=== PATIENT | male | born 1955 | race Caucasian/White ===

== ENCOUNTER 2019-09-24 15:19 | Observation (INO) | payer MEDICARE ==
[~2019-09-24] VITALS: Ht 196 cm; Wt 116.0 kg
[~2019-09-24 15:19] MED LIST: ASPIRIN81 M1 PO; CYCLOBENZAPRINE5 M3 PO; HUMALOG100 UNIT/2 SQ; LASIX40 MG PO; LIPITOR20 MG PO; LOPRESSOR25 MG PO; PLAVIX75 M1 PO; TRESIBA FL100 UNIT/1 SQ
[2019-09-24 15:39] VITALS: BP 146/99
[2019-09-24 16:11] LABS: BASO % 0.7 % (0.0-1.0); EOS # 0.1 10*3/uL (0.0-0.4); EOS % 2.2 % (1.0-4.0); HEMATOCRIT 39.6 % (42.0-52.0); LYMPH # 1.1 10*3/uL (1.3-4.4); LYMPH % 19.7 % (27.0-41.0); MEAN CELL VOLUME 87.6 fl (80.0-94.0); MEAN CORPUSCULAR HGB 26.1 pg (27.0-31.0); MEAN CORPUSCULAR HGB CONC 29.8 g/dl (33.0-37.0); MEAN PLATELET VOLUME 9.9 fl (9.6-12.3); MONO # 0.5 10*3/uL (0.1-1.0); MONO % 8.3 % (3.0-9.0); NEUT # 3.7 10*3/uL (2.3-7.9); NEUT % 68.7 % (47.0-73.0); PLATELET COUNT AUTOMATED 183 10*3/uL (130-400); RED BLOOD COUNT 4.52 10*6/uL (4.50-5.90); RED CELL DISTRI WIDTH 18.4 % (0-14.5); WHITE BLOOD COUNT 5.4 10*3/uL (4.8-10.8)
[2019-09-24 16:28] LABS: ALKALINE PHOSPHATASE 103 U/L (45-117); BUN 18 mg/dl (7-24); CHLORIDE 109 mmol/L (98-107); CREATININE 1.23 mg/dL (0.70-1.30); POTASSIUM 4.3 mmol/L (3.5-5.1); SGOT/AST 19 IU/L (3-35); SGPT/ALT 18 U/L (12-78); SODIUM 139 mmol/L (136-145); TOTAL PROTEIN 6.8 gm/dL (6.4-8.2)
[2019-09-24 16:31] VITALS: BP 142/87
[2019-09-24 16:35] LABS: ACT PARTIAL THROMBO TIME 24.9 SECONDS (20.0-32.1); INTERNATIONAL NORM RATIO 1.2 (2.0-3.5)
[2019-09-24 16:46] LABS: TROPONIN I 0.066 ng/ml (<0.045)
[2019-09-24 17:16] VITALS: BP 166/94
[2019-09-24 20:00] VITALS: BP 160/88
[2019-09-25 08:00] VITALS: BP 139/98
== END 2019-09-25 11:06 | disposition home or self-care (01) ==
LOC: ED 15:19 → EDHOLD 18:43 → 5E 18:43
PROVIDERS: Emergency Medicine; ADMIT Internal Medicine
DX: R68.89 Other general symptoms and signs (principal); R55 Syncope and collapse; R06.00 Dyspnea, unspecified; E11.9 Type 2 diabetes mellitus without complications; I25.10 Atherosclerotic heart disease of native coronary artery without angina pectoris; R79.89 Other specified abnormal findings of blood chemistry; E87.8 Other disorders of electrolyte and fluid balance, not elsewhere classified; E87.2 Acidosis; E44.0 Moderate protein-calorie malnutrition; E66.9 Obesity, unspecified; Z68.30 Body mass index [BMI] 30.0-30.9, adult; D64.9 Anemia, unspecified

== ENCOUNTER → 2021-01-21 | Outpatient (CLI) | payer MEDICARE | END | disposition home or self-care (01) | LOC: RESCLI 00:41 | PROVIDERS: ATTEND Internal Medicine | DX: E11.9 Type 2 diabetes mellitus without complications (principal); E78.5 Hyperlipidemia, unspecified; G62.2 Polyneuropathy due to other toxic agents; G62.9 Polyneuropathy, unspecified; I10 Essential (primary) hypertension; Z95.5 Presence of coronary angioplasty implant and graft; Z79.899 Other long term (current) drug therapy; Z95.0 Presence of cardiac pacemaker; Z95.828 Presence of other vascular implants and grafts; Z79.84 Long term (current) use of oral hypoglycemic drugs ==

== ENCOUNTER 2021-03-01 09:00 | Inpatient (IN) | payer MEDICARE ==
[~2021-03-01] VITALS: Ht 195.5 cm; Wt 115.0 kg
[2021-03-01] VITALS (7 sets, daily range): BP systolic 105–137; BP diastolic 61–82
[2021-03-01 10:00] LABS: BASO % 0.2 % (0.0-1.0); HEMATOCRIT 39.8 % (42.0-52.0); LYMPH # 0.7 10*3/uL (1.3-4.4); LYMPH % 11.4 % (27.0-41.0); MEAN CELL VOLUME 86.7 fl (80.0-94.0); MEAN CORPUSCULAR HGB 29.4 pg (27.0-31.0); MEAN CORPUSCULAR HGB CONC 33.9 g/dl (33.0-37.0); MEAN PLATELET VOLUME 11.2 fl (9.6-12.3); MONO # 0.5 10*3/uL (0.1-1.0); MONO % 7.7 % (3.0-9.0); NEUT # 4.6 10*3/uL (2.3-7.9); NEUT % 79.5 % (47.0-73.0); PLATELET COUNT AUTOMATED 130 10*3/uL (130-400); RED BLOOD COUNT 4.59 10*6/uL (4.50-5.90); RED CELL DISTRI WIDTH 13.2 % (0-14.5); WHITE BLOOD COUNT 5.8 10*3/uL (4.8-10.8)
[2021-03-01 10:16] LABS: ALBUMIN 2.6 gm/dl (3.1-4.5); CREATININE 1.88 mg/dL (0.70-1.30); POTASSIUM 4.7 mmol/L (3.5-5.1); TOTAL PROTEIN 6.6 gm/dL (6.4-8.2)
[2021-03-01 10:18] LABS: TROPONIN I 0.055 ng/ml (<0.045)
[2021-03-01 17:25] LABS: CREATININE 1.96 mg/dL (0.70-1.30); POTASSIUM 4.9 mmol/L (3.5-5.1)
[2021-03-02 02:16] VITALS: BP 120/80
[2021-03-02 03:56] LABS: ARTERIAL BLOOD GAS PH 7.412 (7.35-7.45)
[2021-03-02 03:58] LABS: ABG BASE EXCESS -3.7 mmol/L (-2.0-2.0)
[2021-03-02 06:32] LABS: MEAN CELL VOLUME 89.7 fl (80.0-94.0); MEAN CORPUSCULAR HGB 29.3 pg (27.0-31.0); MEAN CORPUSCULAR HGB CONC 32.7 g/dl (33.0-37.0); MEAN PLATELET VOLUME 11.2 fl (9.6-12.3); PLATELET COUNT AUTOMATED 157 10*3/uL (130-400); RED BLOOD COUNT 4.57 10*6/uL (4.50-5.90); RED CELL DISTRI WIDTH 13.5 % (0-14.5); WHITE BLOOD COUNT 5.2 10*3/uL (4.8-10.8)
[2021-03-02 06:37] LABS: ALBUMIN 2.7 gm/dl (3.1-4.5); CREATININE 1.87 mg/dL (0.70-1.30); POTASSIUM 4.6 mmol/L (3.5-5.1); TOTAL PROTEIN 6.2 gm/dL (6.4-8.2)
[2021-03-02 08:00] VITALS: BP 144/87
[2021-03-02 08:05] LABS: ATYPICAL LYMPHS 1 % (0-0); BURR CELLS FEW; PLATELET SUFFICIENCY NORMAL (NORMAL); TOTAL CELLS COUNTED 100 #CELLS
[2021-03-02 08:54] LABS: BILIRUBIN Negative (Negative); BLOOD Trace-Lysed (Negative); CLARITY Clear (Clear); COLOR Dark Yellow (Yellow); GLUCOSE 3+ (Negative); KETONE Negative (Negative); LEUKO ESTERASE Negative (Negative); NITRITE Negative (Negative); SPECIFIC GRAVITY >= 1.030 (1.001-1.030)
[2021-03-02 09:09] LABS: BACTERIA 1+; RBC 0-2 rbc/hpf (0-2)
[2021-03-02 09:19] LABS: VITAMIN D, 25-HYDROXY 28.2 ng/mL (30-100)
[2021-03-02 12:00] VITALS: BP 145/95
[2021-03-02 15:51] VITALS: BP 141/90
[2021-03-02] MEDS ORDERED: NEURONTIN300 MG PO (19:11)
[2021-03-02] MEDS ORDERED: CYMBALTA30 MG PO (19:11)
[2021-03-02] MEDS ORDERED: COREG25 MG PO (19:12)
[2021-03-02] MEDS ORDERED: LOSARTAN POTASS25 M1 PO (19:12)
[2021-03-02 20:00] VITALS: BP 122/75
[2021-03-03] VITALS: BP 144/85
[2021-03-03 07:00] LABS: CREATININE 1.84 mg/dL (0.70-1.30); POTASSIUM 5.2 mmol/L (3.5-5.1)
[2021-03-03 08:00] VITALS: BP 142/68
[2021-03-03 12:00] VITALS: BP 124/85
[2021-03-03 16:00] VITALS: BP 144/79
[2021-03-03 20:00] VITALS: BP 111/72
[2021-03-04] VITALS: BP 115/79
[2021-03-04 06:28] LABS: CREATININE 1.78 mg/dL (0.70-1.30); POTASSIUM 4.9 mmol/L (3.5-5.1)
[2021-03-04 08:00] VITALS: BP 112/67
[2021-03-04 20:00] VITALS: BP 117/71
[2021-03-04 23:20] VITALS: BP 124/84
[2021-03-05 06:25] LABS: BASO % 0.1 % (0.0-1.0); HEMATOCRIT 38.8 % (42.0-52.0); LYMPH # 0.5 10*3/uL (1.3-4.4); LYMPH % 4.9 % (27.0-41.0); MEAN CELL VOLUME 88.8 fl (80.0-94.0); MEAN CORPUSCULAR HGB 29.5 pg (27.0-31.0); MEAN CORPUSCULAR HGB CONC 33.2 g/dl (33.0-37.0); MEAN PLATELET VOLUME 10.9 fl (9.6-12.3); MONO # 0.7 10*3/uL (0.1-1.0); MONO % 7.1 % (3.0-9.0); NEUT # 8.1 10*3/uL (2.3-7.9); PLATELET COUNT AUTOMATED 216 10*3/uL (130-400); RED BLOOD COUNT 4.37 10*6/uL (4.50-5.90); RED CELL DISTRI WIDTH 13.2 % (0-14.5); WHITE BLOOD COUNT 9.3 10*3/uL (4.8-10.8)
[2021-03-05 06:42] LABS: POTASSIUM 4.9 mmol/L (3.5-5.1)
[2021-03-05 06:54] LABS: ALBUMIN 2.3 gm/dl (3.1-4.5); CREATININE 1.72 mg/dL (0.70-1.30); TOTAL PROTEIN 5.5 gm/dL (6.4-8.2)
[2021-03-05 08:00] VITALS: BP 147/92
[2021-03-05 12:00] VITALS: BP 131/92
[2021-03-05 16:00] VITALS: BP 135/84
[2021-03-05 20:00] VITALS: BP 120/95
[2021-03-06] VITALS: BP 121/72
[2021-03-06 07:16] LABS: BASO % 0.1 % (0.0-1.0); HEMATOCRIT 36.5 % (42.0-52.0); LYMPH # 0.4 10*3/uL (1.3-4.4); LYMPH % 3.5 % (27.0-41.0); MEAN CORPUSCULAR HGB 29.6 pg (27.0-31.0); MEAN CORPUSCULAR HGB CONC 33.7 g/dl (33.0-37.0); MEAN PLATELET VOLUME 10.9 fl (9.6-12.3); MONO # 0.6 10*3/uL (0.1-1.0); MONO % 5.7 % (3.0-9.0); NEUT # 9.2 10*3/uL (2.3-7.9); NEUT % 89.3 % (47.0-73.0); PLATELET COUNT AUTOMATED 215 10*3/uL (130-400); RED BLOOD COUNT 4.15 10*6/uL (4.50-5.90); RED CELL DISTRI WIDTH 13.3 % (0-14.5); WHITE BLOOD COUNT 10.3 10*3/uL (4.8-10.8)
[2021-03-06 07:32] LABS: ALBUMIN 2.2 gm/dl (3.1-4.5); CREATININE 1.69 mg/dL (0.70-1.30); TOTAL PROTEIN 5.3 gm/dL (6.4-8.2)
[2021-03-06 08:00] VITALS: BP 149/81
[2021-03-06 08:42] LABS: ABG BASE EXCESS -3.5 mmol/L (-2.0-2.0); ARTERIAL BLOOD GAS PH 7.431 (7.35-7.45); ARTERIAL BLOOD GAS PO2 47.3 (80-90)
[2021-03-06 11:50] VITALS: BP 143/80
[2021-03-06 16:01] VITALS: BP 150/84
[2021-03-06 20:00] VITALS: BP 132/80; BP 93/69
[2021-03-07] VITALS: BP 123/67
[2021-03-07 06:57] LABS: HEMATOCRIT 36.6 % (42.0-52.0); MEAN CELL VOLUME 87.6 fl (80.0-94.0); MEAN CORPUSCULAR HGB 29.2 pg (27.0-31.0); MEAN CORPUSCULAR HGB CONC 33.3 g/dl (33.0-37.0); MEAN PLATELET VOLUME 10.9 fl (9.6-12.3); PLATELET COUNT AUTOMATED 219 10*3/uL (130-400); RED BLOOD COUNT 4.18 10*6/uL (4.50-5.90); RED CELL DISTRI WIDTH 13.2 % (0-14.5); WHITE BLOOD COUNT 9.7 10*3/uL (4.8-10.8)
[2021-03-07 07:20] LABS: ALBUMIN 2.4 gm/dl (3.1-4.5); CREATININE 1.47 mg/dL (0.70-1.30); POTASSIUM 5.3 mmol/L (3.5-5.1); TOTAL PROTEIN 5.7 gm/dL (6.4-8.2)
[2021-03-07 08:00] VITALS: BP 152/82
[2021-03-07 08:47] LABS: PLATELET SUFFICIENCY NORMAL (NORMAL); TOTAL CELLS COUNTED 100 #CELLS
[2021-03-07 12:00] VITALS: BP 152/92
[2021-03-07 16:00] VITALS: BP 147/84
[2021-03-07 20:00] VITALS: BP 112/75
[2021-03-08] VITALS: BP 111/74
[2021-03-08 07:21] LABS: CREATININE 1.47 mg/dL (0.70-1.30); POTASSIUM 5.1 mmol/L (3.5-5.1)
[2021-03-08 08:00] VITALS: BP 132/79
[2021-03-08 13:00] VITALS: BP 110/68
[2021-03-08 16:00] VITALS: BP 132/78
[2021-03-08 20:00] VITALS: BP 142/86
[2021-03-09] VITALS: BP 113/78
[2021-03-09 06:45] LABS: ALBUMIN 2.3 gm/dl (3.1-4.5); CREATININE 1.53 mg/dL (0.70-1.30); POTASSIUM 5.9 mmol/L (3.5-5.1)
[2021-03-09 06:49] LABS: TOTAL PROTEIN 5.6 gm/dL (6.4-8.2)
[2021-03-09 06:54] LABS: HEMATOCRIT 37.5 % (42.0-52.0); MEAN CELL VOLUME 88.4 fl (80.0-94.0); MEAN CORPUSCULAR HGB 29.5 pg (27.0-31.0); MEAN CORPUSCULAR HGB CONC 33.3 g/dl (33.0-37.0); MEAN PLATELET VOLUME 11.1 fl (9.6-12.3); NUCLEATED RED BLOOD CELL 0.2 % (0.0-0.0); PLATELET COUNT AUTOMATED 251 10*3/uL (130-400); RED BLOOD COUNT 4.24 10*6/uL (4.50-5.90); RED CELL DISTRI WIDTH 13.1 % (0-14.5); WHITE BLOOD COUNT 8.1 10*3/uL (4.8-10.8)
[2021-03-09 07:52] LABS: ATYPICAL LYMPHS 1 % (0-0); PLATELET SUFFICIENCY NORMAL (NORMAL); TOTAL CELLS COUNTED 100 #CELLS
[2021-03-09 08:04] LABS: CREATININE 1.56 mg/dL (0.70-1.30); POTASSIUM 5.9 mmol/L (3.5-5.1)
[2021-03-09 12:00] VITALS: BP 136/78
[2021-03-09 16:00] VITALS: BP 134/84
[2021-03-09 18:12] LABS: CREATININE 1.73 mg/dL (0.70-1.30); POTASSIUM 5.4 mmol/L (3.5-5.1)
[2021-03-09 20:00] VITALS: BP 124/69
[2021-03-09 21:16] LABS: CREATININE 1.81 mg/dL (0.70-1.30); POTASSIUM 5.2 mmol/L (3.5-5.1)
[2021-03-10] VITALS: BP 128/77
[2021-03-10 06:22] LABS: MEAN CELL VOLUME 88.7 fl (80.0-94.0); MEAN CORPUSCULAR HGB 30.2 pg (27.0-31.0); MEAN CORPUSCULAR HGB CONC 34.1 g/dl (33.0-37.0); MEAN PLATELET VOLUME 10.9 fl (9.6-12.3); PLATELET COUNT AUTOMATED 234 10*3/uL (130-400); RED BLOOD COUNT 4.17 10*6/uL (4.50-5.90); RED CELL DISTRI WIDTH 13.2 % (0-14.5); WHITE BLOOD COUNT 9.1 10*3/uL (4.8-10.8)
[2021-03-10 06:45] LABS: POTASSIUM 4.6 mmol/L (3.5-5.1)
[2021-03-10 06:52] LABS: ALBUMIN 2.3 gm/dl (3.1-4.5); CREATININE 1.73 mg/dL (0.70-1.30); TOTAL PROTEIN 5.9 gm/dL (6.4-8.2)
[2021-03-10 07:57] LABS: PLATELET SUFFICIENCY NORMAL (NORMAL); TOTAL CELLS COUNTED 100 #CELLS
[2021-03-10 08:00] VITALS: BP 136/62
[2021-03-10 12:00] VITALS: BP 130/81
[2021-03-10 16:00] VITALS: BP 105/81
[2021-03-10 20:00] VITALS: BP 134/63
[2021-03-11] VITALS: BP 137/91
[2021-03-11 06:20] LABS: HEMATOCRIT 36.3 % (42.0-52.0); MEAN CELL VOLUME 88.8 fl (80.0-94.0); MEAN CORPUSCULAR HGB 29.6 pg (27.0-31.0); MEAN CORPUSCULAR HGB CONC 33.3 g/dl (33.0-37.0); PLATELET COUNT AUTOMATED 202 10*3/uL (130-400); RED BLOOD COUNT 4.09 10*6/uL (4.50-5.90); RED CELL DISTRI WIDTH 13.2 % (0-14.5); WHITE BLOOD COUNT 7.8 10*3/uL (4.8-10.8)
[2021-03-11 06:28] LABS: ALBUMIN 2.1 gm/dl (3.1-4.5); CREATININE 1.59 mg/dL (0.70-1.30); POTASSIUM 4.7 mmol/L (3.5-5.1); TOTAL PROTEIN 5.6 gm/dL (6.4-8.2)
[2021-03-11 07:34] LABS: PLATELET SUFFICIENCY NORMAL (NORMAL); TOTAL CELLS COUNTED 100 #CELLS
[2021-03-11 08:00] VITALS: BP 161/93
[2021-03-11 12:00] VITALS: BP 151/72
[2021-03-11 17:18] VITALS: BP 136/92
[2021-03-11 20:00] VITALS: BP 134/94
[2021-03-12] VITALS: BP 140/102
[2021-03-12 06:54] LABS: CREATININE 1.46 mg/dL (0.70-1.30); POTASSIUM 4.2 mmol/L (3.5-5.1); TOTAL PROTEIN 5.6 gm/dL (6.4-8.2)
[2021-03-12 08:00] VITALS: BP 122/77
[2021-03-12 12:00] VITALS: BP 129/80
[2021-03-12 16:00] VITALS: BP 141/64
[2021-03-12 20:00] VITALS: BP 107/56
[2021-03-13] VITALS: BP 128/83
[2021-03-13 06:27] LABS: HEMATOCRIT 35.3 % (42.0-52.0); MEAN CELL VOLUME 88.5 fl (80.0-94.0); MEAN CORPUSCULAR HGB 29.6 pg (27.0-31.0); MEAN CORPUSCULAR HGB CONC 33.4 g/dl (33.0-37.0); MEAN PLATELET VOLUME 10.9 fl (9.6-12.3); PLATELET COUNT AUTOMATED 157 10*3/uL (130-400); RED BLOOD COUNT 3.99 10*6/uL (4.50-5.90); RED CELL DISTRI WIDTH 13.1 % (0-14.5); WHITE BLOOD COUNT 9.9 10*3/uL (4.8-10.8)
[2021-03-13 07:04] LABS: CHLORIDE 103 mmol/L (98-107); POTASSIUM 4.6 mmol/L (3.5-5.1); SODIUM 137 mmol/L (136-145)
[2021-03-13 07:14] LABS: ALBUMIN 1.8 gm/dl (3.1-4.5); ALKALINE PHOSPHATASE 57 U/L (45-117); BUN 27 mg/dl (7-24); CREATININE 1.25 mg/dL (0.70-1.30); SGOT/AST 20 IU/L (3-35); SGPT/ALT 23 U/L (12-78); TOTAL PROTEIN 5.5 gm/dL (6.4-8.2)
[2021-03-13 07:15] LABS: PLATELET SUFFICIENCY NORMAL (NORMAL); TOTAL CELLS COUNTED 100 #CELLS
[2021-03-13 07:16] LABS: BURR CELLS FEW
[2021-03-13 08:00] VITALS: BP 155/96
[2021-03-13 12:59] LABS: ARTERIAL BLOOD GAS PO2 44.5 (80-90)
[2021-03-13 13:03] LABS: ABG BASE EXCESS -9.2 mmol/L (-2.0-2.0)
[2021-03-13 13:04] LABS: ARTERIAL BLOOD GAS PH 7.183 (7.35-7.45)
== END 2021-03-13 13:20 | DRG 177 ==
LOC: ED 09:00 → EDHOLD 11:19 → 4E 11:19 → EDHOLD 11:37 → 4E 03-02 00:55 → ICCU 03-13 12:35
PROVIDERS: Emergency Medicine; Family Medicine; Hospitalist; Internal Medicine; Internal Medicine Critical Care Medicine; Registered Nurse; Student in an Organized Health Care Education/Training Program; ADMIT Family Medicine; ATTEND Family Medicine
PROC: 5A0935A Assistance with Respiratory Ventilation, Less than 24 Consecutive Hours, High Flow/Velocity Cannula (ICD-10-PCS; 2021-03-02)
PROC: XW033E5 Introduction of Remdesivir Anti-infective into Peripheral Vein, Percutaneous Approach, New Technology Group 5 (ICD-10-PCS; 2021-03-02)
PROC: 5A09457 Assistance with Respiratory Ventilation, 24-96 Consecutive Hours, Continuous Positive Airway Pressure (ICD-10-PCS; 2021-03-03)
PROC: 5A09357 Assistance with Respiratory Ventilation, Less than 24 Consecutive Hours, Continuous Positive Airway Pressure (ICD-10-PCS; 2021-03-03)
PROC: 5A0935A Assistance with Respiratory Ventilation, Less than 24 Consecutive Hours, High Flow/Velocity Cannula (ICD-10-PCS; 2021-03-03)
PROC: 5A09357 Assistance with Respiratory Ventilation, Less than 24 Consecutive Hours, Continuous Positive Airway Pressure (ICD-10-PCS; 2021-03-05)
PROC: 5A0935A Assistance with Respiratory Ventilation, Less than 24 Consecutive Hours, High Flow/Velocity Cannula (ICD-10-PCS; 2021-03-05)
PROC: 5A09357 Assistance with Respiratory Ventilation, Less than 24 Consecutive Hours, Continuous Positive Airway Pressure (ICD-10-PCS; 2021-03-06)
PROC: 5A0935A Assistance with Respiratory Ventilation, Less than 24 Consecutive Hours, High Flow/Velocity Cannula (ICD-10-PCS; 2021-03-06)
PROC: 5A09457 Assistance with Respiratory Ventilation, 24-96 Consecutive Hours, Continuous Positive Airway Pressure (ICD-10-PCS; 2021-03-07)
PROC: 5A0935A Assistance with Respiratory Ventilation, Less than 24 Consecutive Hours, High Flow/Velocity Cannula (ICD-10-PCS; 2021-03-07)
PROC: 5A09457 Assistance with Respiratory Ventilation, 24-96 Consecutive Hours, Continuous Positive Airway Pressure (ICD-10-PCS; 2021-03-11)
PROC: 0BH17EZ Insertion of Endotracheal Airway into Trachea, Via Natural or Artificial Opening (ICD-10-PCS; principal; 2021-03-13)
PROC: 5A12012 Performance of Cardiac Output, Single, Manual (ICD-10-PCS; 2021-03-13)
PROC: 05HY33Z Insertion of Infusion Device into Upper Vein, Percutaneous Approach (ICD-10-PCS; 2021-03-13)
PROC: B54MZZA Ultrasonography of Right Upper Extremity Veins, Guidance (ICD-10-PCS; 2021-03-13)
DX: U07.1 COVID-19 (principal); N17.0 Acute kidney failure with tubular necrosis; J96.01 Acute respiratory failure with hypoxia; E43 Unspecified severe protein-calorie malnutrition; R65.11 Systemic inflammatory response syndrome (SIRS) of non-infectious origin with acute organ dysfunction; E87.1 Hypo-osmolality and hyponatremia; E66.9 Obesity, unspecified; I46.9 Cardiac arrest, cause unspecified; E78.2 Mixed hyperlipidemia; D64.9 Anemia, unspecified; I45.10 Unspecified right bundle-branch block; K21.9 Gastro-esophageal reflux disease without esophagitis; E86.0 Dehydration; I48.91 Unspecified atrial fibrillation; I25.10 Atherosclerotic heart disease of native coronary artery without angina pectoris; E11.65 Type 2 diabetes mellitus with hyperglycemia; I10 Essential (primary) hypertension; Z68.31 Body mass index [BMI] 31.0-31.9, adult; Z90.49 Acquired absence of other specified parts of digestive tract; Z95.1 Presence of aortocoronary bypass graft; Z95.5 Presence of coronary angioplasty implant and graft; Z88.5 Allergy status to narcotic agent; Z88.6 Allergy status to analgesic agent; Z88.8 Allergy status to other drugs, medicaments and biological substances; Z79.82 Long term (current) use of aspirin; Z79.4 Long term (current) use of insulin; Z79.899 Other long term (current) drug therapy; Z82.49 Family history of ischemic heart disease and other diseases of the circulatory system; Z83.3 Family history of diabetes mellitus; Z79.01 Long term (current) use of anticoagulants